=== PATIENT | female | born 1960 | race American Indian/Alaskan Native ===

== ENCOUNTER 2021-07-19 09:03 | Outpatient (CLI) | payer BC ==
--- NOTE | 2021-07-19 10:23 | XRay Report ---
. BILATERAL HAND 3 VIEW(S) INDICATION / CLINICAL INFORMATION: M79.643 PAIN IN UNSPECIFIED HAND COMPARISON: None available. FINDINGS: BONES / JOINT(S): No acute fracture or subluxation. Joint spaces are maintained. No erosions are seen . SOFT TISSUES: No significant abnormality. ADDITIONAL FINDINGS: None. Signer Name: Jourdan Tabares MD Signed: 07/19/2021 10:18 AM Workstation Name: [id number]
== END 2021-07-19 09:04 | disposition home or self-care (01) ==
LOC: XRAY 09:03
PROVIDERS: ATTEND Internal Medicine
DX: M79.643 Pain in unspecified hand (principal)

== ENCOUNTER 2022-01-10 12:02 | Outpatient (CLI) | payer BC ==
--- NOTE | 2022-01-10 16:06 | XRay Report ---
RIGHT SHOULDER 3 VIEWS INDICATION / CLINICAL INFORMATION: M25.511 Right shoulder pain COMPARISON: None available. FINDINGS: BONES / JOINT(S): There are mild degenerative changes involving the acromioclavicular joint. There is spurring involving the undersurface of the anterior acromion. There is no evidence of fracture, subl uxation or destructive lesion. SOFT TISSUES: No significant abnormality. ADDITIONAL FINDINGS: The visualized right lung is clear. IMPRESSION: Degenerative change without acute abnormality. RIGHT HUMERUS 2 VIEWS INDICATION / CLINICAL INFORMATION: M79.601 Right arm pain. COMPARISON: None available. FINDINGS: BONES / JOINT(S): There is no evidence of fracture, subluxation or destructive lesion. No significant arthritis involving the elbow. SOFT TISSUES: No significant abnormality. ADDITIONAL FINDINGS: None. IMPRESSION: No acute findings. Signer Name: Del Aponte MD Signed: 01/10/2022 4:02 PM Workstation Name: [id number]
--- NOTE | 2022-01-12 09:51 | Mammography Report ---
DIGITAL SCREENING MAMMOGRAM WITH CAD, 01/10/2022 CLINICAL INFORMATION / INDICATION: Routine screening mammography. TECHNIQUE: Digital bilateral 2D mammography was obtained in the craniocaudal and mediolateral obliqu e projections. This examination was interpreted with the benefit of Computer-Aided Detection analysis . COMPARISON: None available FINDINGS: Breast Density: The breasts are almost entirely fatty. No dominant mass, suspicious calcifications, or architectural distortion in either breast. IMPRESSION: No mammographic evidence of malignancy. Follow up recommendation: Routine yearly screening mammogram. BI-RADS Category 1: NEGATIVE A "normal" or negative report should not discourage follow up or biopsy of a clinically significant f inding. A written summary of these findings will be mailed to the patient. The patient will be entered into a mammography reporting system which will generate a reminder letter for the patient's next appointmen t at the appropriate interval. The [employer] recommends yearly mammograms starting at age 40 and continuing as l veronica as a woman is in good health. Breast MRI is recommended for women with an approximate 20-25% or greater lifetime risk of breast cancer, including women with a strong family history of breast or ova dixon cancer or who have been treated for Hodgkin's disease. Signer Name: Joyce Burnham MD Signed: 01/12/2022 9:47 AM Workstation Name: [id number]
== END 2022-01-10 12:03 | disposition home or self-care (01) ==
LOC: MAMMO 12:02
PROVIDERS: ATTEND Internal Medicine
DX: Z12.31 Encounter for screening mammogram for malignant neoplasm of breast (principal); M19.011 Primary osteoarthritis, right shoulder; M77.8 Other enthesopathies, not elsewhere classified; M79.601 Pain in right arm
CPT/HCPCS: 77067

== ENCOUNTER 2022-01-17 10:34 | Outpatient (CLI) | payer BC ==
[2022-01-17 12:30] LABS: Eosinophils # (Auto) 0.2 K/mm3 (0.0-0.4); Eosinophils % (Auto) 5.1 % (0.0-4.3); Hematocrit 37.8 % (30.3-42.9); Hemoglobin 12.3 gm/dl (10.1-14.3); Lymphocytes # (Auto) 1.7 K/mm3 (1.2-5.4); Lymphocytes % (Auto) 36.2 % (13.4-35.0); Mean Corpuscular HGB Conc 32 % (30-34); Mean Corpuscular Volume 84 fl (79-97); Monocytes # (Auto) 0.5 K/mm3 (0.0-0.8); Platelet Count 408 K/mm3 (140-440); Red Blood Count 4.51 M/mm3 (3.65-5.03); Red Cell Distribution Width 14.5 % (13.2-15.2)
[2022-01-17 12:55] LABS: Alanine Aminotransferase 24 units/L (7-56); Albumin 4.7 g/dL (3.9-5); BUN/Creatinine Ratio 18; Blood Urea Nitrogen 14 mg/dL (7-17); Calcium 9.8 mg/dL (8.4-10.2); Chol/HDL Ratio 3.04 %; HDL Cholesterol 75 mg/dL (40-59); Hemolysis Index 19; LDL Cholesterol,Direct 149 mg/dL (50-130)
== END 2022-01-17 10:35 | disposition home or self-care (01) ==
LOC: LABHHL 10:34
PROVIDERS: ATTEND Internal Medicine
DX: I10 Essential (primary) hypertension (principal); E55.9 Vitamin D deficiency, unspecified; R53.83 Other fatigue
CPT/HCPCS: 36415; 80053; 80061; 82306; 84443; 85025